=== PATIENT | female | born 1950 | race Hispanic/Latino ===

== ENCOUNTER 2018-12-09 11:39 | Inpatient (IN) | payer OTHER ==
[~2018-12-09] VITALS: Ht 152.4 cm; Wt 54.9 kg
[2018-12-09] MEDS: DEXTROSE 5 % AND 0.9 % NACL 1,000 ML IV SCH (12:00)
[2018-12-09] MEDS ORDERED: ONDANSETRON HCL 4 MG/2 ML VIAL IVP PRN (12:00)
[2018-12-09] MEDS ORDERED: ACETAMINOPHEN 325 MG TAB PO PRN (12:00)
[2018-12-09] MEDS ORDERED: SODIUM CHLORIDE 0.9% 1000ML 1,000 ML IV ONE (12:39)
[2018-12-09] MEDS ORDERED: LACTATED RINGERS 1000ML 1,000 ML IV ONE ×2 (12:39→15:53)
[2018-12-09 12:54] LABS: BASOPHILS % (AUTO) 0.7 % (0.0-5.0); EOSINOPHILS % (AUTO) 0.5 % (0.0-8.0); HEMATOCRIT 37.7 % (36-48); LYMPHOCYTES % (AUTO) 14.3 % (21.0-51.0); MEAN CORPUSCULAR HEMOGLOBIN 30.4 pg (27.0-33.0); MEAN CORPUSCULAR HGB CONC 35.8 g/dL (32.0-36.0); MEAN CORPUSCULAR VOLUME 84.8 fL (79-99); MONOCYTES % (AUTO) 6.6 % (3.0-13.0); NEUTROPHILS % (AUTO) 77.9 % (40.0-77.0); PLATELET COUNT (AUTO) 192 K/uL (130-400); RED BLOOD CELL COUNT(AUTO) 4.45 MIL/uL (4.00-5.50); RED CELL DISTRIBUTION WIDTH 14.3 % (11.0-15.5); WHITE BLOOD COUNT (AUTO) 8.3 K/uL (4.8-10.8)
[2018-12-09 13:04] LABS: CARBON DIOXIDE 28 mmol/L (21-32); CHLORIDE 103 mmol/L (101-111); CREATININE 0.6 mg/dL (0.5-1.5); GLOMERULAR FILTR. RATE CALC 106 mL/min (>60); GLUCOSE,RANDOM 96 mg/dL (70-105); POTASSIUM 3.3 mmol/L (3.5-5.1); SODIUM SERUM 143 mmol/L (136-145); UREA NITROGEN, BLOOD 11 mg/dL (7-18)
[2018-12-09 13:08] LABS: ALBUMIN 3.5 g/dL (3.5-5.0); ASPARTATE AMINOTRANSFERASE 10 U/L (10-37); PHOSPHORUS 3.6 mg/dL (2.5-4.9); TOTAL PROTEIN, SERUM 6.6 g/dL (6.0-8.3)
[2018-12-09 13:11] LABS: ALANINE AMINOTRANSFERASE < 6 U/L (12-78)
[2018-12-09 13:58] LABS: ERYTHROCYTE SEDIMENTATION RATE 17 MM/HR (0-30)
[2018-12-09] MEDS ORDERED: POTASSIUM CHLORIDE 20 MEQ ERTAB PO ONE (15:53)
[2018-12-09 17:04] LABS: APPEARANCE,URINE Clear (CLEAR); BILIRUBIN,URINE Moderate (NEGATIVE); COLOR,URINE Dark Yellow (YELLOW); GLUCOSE, URINE (UA) Negative (NEGATIVE); KETONES,URINE >=160 mg/dL (NEGATIVE); LEUKOCYTE ESTERASE ,URINE Small (NEGATIVE); NITRATE,URINE Negative (NEGATIVE); OCCULT BLOOD,URINE Negative (NEGATIVE); PH,URINE 6.5 (5.0-8.0); PROTEIN,URINE POS 1+ mg/dL (NEGATIVE)
[2018-12-09 17:13] LABS: RBC,URINE 0-1 /HPF (0-1)
[2018-12-09 17:14] LABS: BACTERIA,URINE Few /HPF (None Seen); SQUAMOUS EPITHELIAL CELL,UR Few /HPF (0-2)
[2018-12-09 18:17] VITALS: BP 160/78
--- NOTE | 2018-12-09 18:41 | NUR ---
HAS BLANKET AND UNDERGARMENTS Addendum: 12/09/18 at 1855 by KASIA COYLE RN Amended: Links added.
[2018-12-09 19:59] VITALS: BP 193/91
--- NOTE | 2018-12-09 20:30 | NUR ---
CALL TO DAUGHTER T/C PLACED TO DAUGHTER TO INFORM HER TO BRING HOME MEDICATIONS, STATES WILL BRING AT 6 AM, INFORMED NIGHT NURSE ISELA MORALES. ALSO, ASKED ABOUT LAST BOWEL MOVEMENT, STATES IS WAS LAST SUNDAY OR SUNDAY.
[2018-12-09] MEDS: FAMOTIDINE 20MG TAB 20 MG TAB PO SCH (20:41)
[2018-12-10] VITALS: BP 180/84
[2018-12-10 04:00] VITALS: BP 184/77
[2018-12-10 07:51] VITALS: BP 179/75
--- NOTE | 2018-12-10 08:10 | NUR ---
Dr. Kala winter. Pt sleeping. New orders for US abdomen/liver. Addendum: 12/10/18 at 0813 by JAUN YAO RN RN Error. Dr. Abilio winter.
[2018-12-10] MEDS ORDERED: LISI10TA7 PO (08:38)
[2018-12-10] MEDS ORDERED: PANT40TA25 PO (08:38)
[2018-12-10] MEDS ORDERED: CARAL PO (08:38)
[2018-12-10] MEDS: FAMOTIDINE 20MG TAB 20 MG TAB PO SCH ×2 (08:40→21:49)
[2018-12-10] MEDS: SODIUM CHLORIDE 0.9% 1000ML 1,000 ML IV SCH ×4 (08:42→18:30)
[2018-12-10 11:14] VITALS: BP 146/72
[2018-12-10] MEDS: DEXTROSE 5 % AND 0.9 % NACL 1,000 ML IV SCH (12:00)
[2018-12-10] MEDS ORDERED: POTASSIUM CHLORIDE 20 MEQ ERTAB PO PRN (16:00)
--- NOTE | 2018-12-10 16:00 | NUR ---
CM NOTE IA ATTEMPTED X 2 FIRST TIME EARLIER TODAY PT SLEEPING HEAVILY, NO FMAILY IN ROOM- EYES CLOSED, RESP REGUALR SECOND ATTEMPT, PT ON BEDPAN, WILL RETURN FOR IA TOMORROW. PT CURRENTLY IN OBS STATUS, BUT NOT EXPECTED TO DC TODAY . DISCUSSED PATIENT Donal [facility] , INVESTIGATION INTO UNDERLYING CAUSE FOR SYMPTOMS STILL ONGOING Addendum: 12/11/18 at 4098 by SYK HOLDER RN CM Amended: Links added.
[2018-12-10] MEDS ORDERED: DIATR MEGLU/DIATRIZOATE SODIUM 30 ML BOTTLE ONE (16:28)
[2018-12-10] MEDS: PANTOPRAZOLE SODIUM 40 MG TABLET.DR PO SCH (16:30)
[2018-12-10 16:53] VITALS: BP 181/72
[2018-12-10] MEDS: SUCRALFATE 1 GM/10 ML PO SCH (17:00)
[2018-12-10] MEDS ORDERED: AMLODIPINE BESYLATE 5 MG TAB PO SCH (19:45)
[2018-12-10 19:53] VITALS: BP 158/84
[2018-12-10] MEDS ORDERED: AMLODIPINE BESYLATE 5 MG TAB PO ONE (21:11)
[2018-12-10] MEDS: LISINOPRIL 10 MG TABLET PO SCH (21:49)
[2018-12-11] VITALS (20 sets, daily range): BP systolic 141–202; BP diastolic 61–96
[2018-12-11 05:48] LABS: BASOPHILS % (AUTO) 0.9 % (0.0-5.0); EOSINOPHILS % (AUTO) 0.6 % (0.0-8.0); HEMATOCRIT 36.1 % (36-48); LYMPHOCYTES % (AUTO) 15.3 % (21.0-51.0); MEAN CORPUSCULAR HEMOGLOBIN 30.2 pg (27.0-33.0); MEAN CORPUSCULAR HGB CONC 35.5 g/dL (32.0-36.0); MEAN CORPUSCULAR VOLUME 85.1 fL (79-99); NEUTROPHILS % (AUTO) 76.2 % (40.0-77.0); PLATELET COUNT (AUTO) 177 K/uL (130-400); RED BLOOD CELL COUNT(AUTO) 4.25 MIL/uL (4.00-5.50); WHITE BLOOD COUNT (AUTO) 7.4 K/uL (4.8-10.8)
[2018-12-11 06:15] LABS: CREATININE 0.5 mg/dL (0.5-1.5); POTASSIUM 3.2 mmol/L (3.5-5.1)
[2018-12-11] MEDS: PANTOPRAZOLE SODIUM 40 MG TABLET.DR PO SCH ×2 (07:00→15:58)
[2018-12-11] MEDS: SUCRALFATE 1 GM/10 ML PO SCH ×3 (07:00→15:58)
[2018-12-11] MEDS: FAMOTIDINE 20MG TAB 20 MG TAB PO SCH ×2 (08:52→21:00)
[2018-12-11] MEDS: AMLODIPINE BESYLATE 5 MG TAB PO SCH (08:54)
[2018-12-11] MEDS ORDERED: ENOXAPARIN SODIUM 40 MG/0.4 ML SYRINGE SQ SCH (09:00)
[2018-12-11] MEDS: SODIUM CHLORIDE 0.9% 1000ML 1,000 ML IV SCH ×2 (10:30→15:59)
[2018-12-11] MEDS: DEXTROSE 5 % AND 0.9 % NACL 1,000 ML IV SCH ×2 (12:00→14:55)
[2018-12-11] MEDS: POTASSIUM CHLORIDE 10% ELIXIR 20 MEQ/15 ML UDCUP PO PRN ×2 (13:48→14:55)
[2018-12-11] MEDS: HYDRALAZINE HCL 20 MG/ML VIAL IV PRN ×2 (13:49→18:18)
[2018-12-11] MEDS ORDERED: MANNITOL 25% 50ML VIAL IV STA (14:07)
--- NOTE | 2018-12-11 14:20 | NUR ---
XFR Received from 4th floor room 412. Easy to arouse, oriented to person and place. Daughter at bedside. New 20 gauge IV catheter started to left wrist, meds given as ordered. Daughter at bedside, plan of care discussed, verbalized understanding. Sinus mechanism in 90s. Side rails up. Will continue to monitor.
[2018-12-11] MEDS ORDERED: DEXAMETHASONE SOD PHOSPHATE 4 MG/ML 1ML VIAL IVP STA (14:25)
[2018-12-11] MEDS ORDERED: LEVETIRACETAM 1,500 MG in SODIUM CHLORIDE 0.9% 100 ML IV SCH (14:37)
[2018-12-11] MEDS: POTASSIUM CHLORIDE 20MEQ/100ML 100 ML IV PRN (14:56)
[2018-12-11] MEDS: LIDOCAINE HCL-MPF 1% 2ML VIAL IV PRN (14:56)
[2018-12-11] MEDS ORDERED: COMPOUND IV MISC 1 EACH IVSOLN MISC PRN (15:00)
--- NOTE | 2018-12-11 16:30 | NUR ---
CONSULT Dr. Pierre made aware of new consult.
--- NOTE | 2018-12-11 16:51 | NUR ---
BENCHMARK Dr. Silver made aware of Dr. Pierre's recommendations.
--- NOTE | 2018-12-11 17:40 | NUR ---
DC PLAN VISITED WITH PATIENT. PATIENT LIVES WITH DAUGHTER. INDEPENDENT ABLE TO PERFORM ADL'S. PATIENT HAS NO SERVICES OR DME'S. FEELS SAFE TO RETURN HOME. Addendum: 12/11/18 at 1741 by FIDENCIO PEREZ RN CM Amended: Links added.
--- NOTE | 2018-12-11 17:45 | NUR ---
Paged oncology full fashioned garment knitter twice to notify about transfer to ICU and results of CT scans, awaiting reply.
--- NOTE | 2018-12-11 19:15 | NUR ---
ASSESMENT: Report received. Patient difficult to arouse, oriented to person and place by responding "yes " to questions. kennedi 3 mm equal, lungs clear on room air, bowel sounds active, pedal pulses weak . Daughter at bedside. Daughter at bedside, plan of care discussed, verbalized understanding. Sinus mechanism in 98. Side rails up. See full assessment.
[2018-12-11] MEDS: DEXAMETHASONE SOD PHOSPHATE 4 MG/ML 1ML VIAL IVP SCH (20:19)
[2018-12-11] MEDS: LEVETIRACETAM 500 MG in SODIUM CHLORIDE 0.9% 100 ML IV SCH (20:19)
[2018-12-11] MEDS: LISINOPRIL 10 MG TABLET PO SCH (21:00)
--- NOTE | 2018-12-11 22:00 | NUR ---
Gwendolyn KIM,MANAGER [employer] notified patient very difficult to arouse, Pupils 3mm, equal, earlier she was oriented to person and place by responding "yes " to questions. kennedi 3 mm equal, unable to take po meds at this time, moves extremities but not to command, grimaces to loud verbal and tactile stimuli. Patient did received po meds approx 1400, mannitol and high dose of Keppra. Loose stool with low potassium covered. New order for CT brain without contrast, increase D5W to 55 ml/hr.
--- NOTE | 2018-12-11 22:50 | NUR ---
CT BRAIN WITHOUT CONTRAST COMPLETED.
[2018-12-12] VITALS (27 sets, daily range): BP systolic 132–181; BP diastolic 63–90
[2018-12-12] MEDS: DEXAMETHASONE SOD PHOSPHATE 4 MG/ML 1ML VIAL IVP SCH ×5 (00:10→23:04)
[2018-12-12] MEDS: HYDRALAZINE HCL 20 MG/ML VIAL IV PRN ×3 (00:10→15:49)
[2018-12-12 00:33] LABS: POTASSIUM 3.3 mmol/L (3.5-5.1)
--- NOTE | 2018-12-12 00:39 | NUR ---
CT HEAD RESULTS REPORTED TO Mike KIM NP-NEW ORDERS RECEIVED
[2018-12-12] MEDS ORDERED: MANNITOL 25% 50ML VIAL ONE (00:53)
[2018-12-12] MEDS: MANNITOL 25% 50ML VIAL IV SCH ×2 (01:24→23:29)
[2018-12-12] MEDS: POTASSIUM CHLORIDE 20MEQ/100ML 100 ML IV PRN ×2 (01:29→03:23)
[2018-12-12] MEDS: LIDOCAINE HCL-MPF 1% 2ML VIAL IV PRN ×2 (01:29→03:24)
[2018-12-12] MEDS: INSULIN HUMULIN R 100 UNIT/ML 3ML SQ SCH ×6 (02:39→22:00)
[2018-12-12 04:38] LABS: CREATININE 0.6 mg/dL (0.5-1.5); MAGNESIUM 1.6 mg/dL (1.80-2.40); PHOSPHORUS 2.6 mg/dL (2.5-4.9); POTASSIUM 3.9 mmol/L (3.5-5.1)
[2018-12-12] MEDS: SUCRALFATE 1 GM/10 ML PO SCH ×3 (06:32→17:18)
[2018-12-12] MEDS: PANTOPRAZOLE SODIUM 40 MG TABLET.DR PO SCH (06:32)
[2018-12-12] MEDS ORDERED: MAGNESIUM 2GM PREMIX 50ML 50 ML IV PRN ×2 (07:45→13:45)
[2018-12-12] MEDS: LEVETIRACETAM 500 MG in SODIUM CHLORIDE 0.9% 100 ML IV SCH (08:21)
[2018-12-12] MEDS: AMLODIPINE BESYLATE 5 MG TAB PO SCH (09:21)
[2018-12-12] MEDS: FAMOTIDINE 20MG TAB 20 MG TAB PO SCH ×2 (09:21→20:10)
[2018-12-12] MEDS: DEXTROSE 5 % AND 0.9 % NACL 1,000 ML IV SCH (10:26)
[2018-12-12] MEDS ORDERED: GADODIAMIDE 10 MMOL/20 ML VIAL IV ONE (10:55)
--- NOTE | 2018-12-12 14:10 | NUR ---
CALLED OFFICE OF DR PÉREZ TO NOTIFY ABOUT NEW CONSULT, SPOKE TO VICK
--- NOTE | 2018-12-12 15:00 | NUR ---
SPOKE TO DR PÉREZ VIA PHONE, STATED HE'LL SEE PATIENT TOMORROW
--- NOTE | 2018-12-12 16:14 | NUR ---
DCP: [facility] at [facility] Hannah met with pt's daughter Dimple Townsend. Daughter wanting to discuss options for hospice with placement. Sw educated on hospice at home, [place], and [facility]. Daughter wanting to tour [facility] and [facility] and use [facility]. Daughter gave consent for referrals. Hannah spoke to Nina at [facility] and gave name for waiting list. Daughter in tour at 9 in am. Hannah spoke to Uma at [facility]. THey will call daughter in am with tour time. Hannah spoke to Gio at [facility] and he will meet with family for consents. Pt info faxed to Gio Waiting for acceptance
[2018-12-12] MEDS ORDERED: PANTOPRAZOLE 40 MG/VIAL IV SCH (16:30)
[2018-12-12 18:40] LABS: MAGNESIUM 2.1 mg/dL (1.80-2.40); POTASSIUM 3.4 mmol/L (3.5-5.1)
[2018-12-12] MEDS: LEVETIRACETAM 750 MG in SODIUM CHLORIDE 0.9% 100 ML IV SCH (20:10)
[2018-12-12] MEDS: POTASSIUM CHLORIDE 10% ELIXIR 20 MEQ/15 ML UDCUP PO PRN ×2 (20:11→23:04)
[2018-12-12] MEDS: LISINOPRIL 10 MG TABLET PO SCH (20:11)
[2018-12-13] VITALS (10 sets, daily range): BP systolic 139–168; BP diastolic 61–79
[2018-12-13] MEDS: HYDRALAZINE HCL 20 MG/ML VIAL IV PRN ×2 (00:22→04:01)
[2018-12-13 00:32] LABS: POTASSIUM 4.6 mmol/L (3.5-5.1)
[2018-12-13] MEDS: INSULIN HUMULIN R 100 UNIT/ML 3ML SQ SCH ×3 (02:00→10:00)
[2018-12-13] MEDS: DEXAMETHASONE SOD PHOSPHATE 4 MG/ML 1ML VIAL IVP SCH (06:02)
[2018-12-13 06:16] LABS: HEMATOCRIT 38.7 % (36-48); LYMPHOCYTES % (AUTO) 4.7 % (21.0-51.0); MEAN CORPUSCULAR HEMOGLOBIN 29.8 pg (27.0-33.0); MEAN CORPUSCULAR HGB CONC 34.4 g/dL (32.0-36.0); MEAN CORPUSCULAR VOLUME 86.7 fL (79-99); MONOCYTES % (AUTO) 7.1 % (3.0-13.0); NEUTROPHILS % (AUTO) 88.2 % (40.0-77.0); PLATELET COUNT (AUTO) 194 K/uL (130-400); RED BLOOD CELL COUNT(AUTO) 4.46 MIL/uL (4.00-5.50); RED CELL DISTRIBUTION WIDTH 15.7 % (11.0-15.5); WHITE BLOOD COUNT (AUTO) 11.4 K/uL (4.8-10.8)
[2018-12-13 06:36] LABS: CREATININE 0.6 mg/dL (0.5-1.5); MAGNESIUM 1.9 mg/dL (1.80-2.40); PHOSPHORUS 2.2 mg/dL (2.5-4.9); POTASSIUM 3.9 mmol/L (3.5-5.1)
--- NOTE | 2018-12-13 09:04 | NUR ---
[facility] Hannah recd call from Marcela at [facility]. Daughter is there at this time for tour. [facility] has a bed available. Pending acceptance. CM notified. Hannah spoke to Gio. Pt is accepted by [facility] pending placement.
[2018-12-13] MEDS: LEVETIRACETAM 750 MG in SODIUM CHLORIDE 0.9% 100 ML IV SCH (09:08)
[2018-12-13] MEDS: FAMOTIDINE 20MG TAB 20 MG TAB PO SCH (09:13)
[2018-12-13] MEDS: SUCRALFATE 1 GM/10 ML PO SCH (09:13)
[2018-12-13] MEDS: AMLODIPINE BESYLATE 5 MG TAB PO SCH (09:13)
--- NOTE | 2018-12-13 09:54 | NUR ---
DCP: [facility] Hannah recd call from Marcela at [facility], pt has been accepted and must be there by 3 today. Hannah spoke to Gio at [facility], DME should be there within 2 hrs. Gio to notify when DME there. CM is aware of above and working on ambulance transport auth
--- NOTE | 2018-12-13 10:16 | NUR ---
GAVE REPORT TO ANTONINO HILARIO.
--- NOTE | 2018-12-13 10:45 | NUR ---
GAVE EMS REPORT FOR PATIENT TRANSFER TO [facility].
--- NOTE | 2018-12-13 10:53 | NUR ---
DC PLAN PATIENT ACCEPTED TO [facility] AND TO ANTONINO HILARIO. EMS SET UP FOR PATIENT. NURSE AWARE THAT PATIENT NEEDS TO BE DISCHARGED BY 2PM. Addendum: 12/13/18 at 1054 by FIDENCIO PEREZ RN CM Amended: Links added.
--- NOTE | 2018-12-13 11:23 | NUR ---
INFORMED DR. WOODRUFF ABOUT PATIENT LEAVING FOR [facility] AND [facility].
--- NOTE | 2018-12-13 11:36 | NUR ---
OOHDNR/DME at [facility] met with pt's daughter Dimple and completed the OOHDNR. OOHDNR was sent to Gio who will get Dr Patel, director of health education to sign. Gio states DME at facility.
--- NOTE | 2018-12-13 12:08 | NUR ---
PATIENT TAKEN BY EMS TO [facility] WITH [facility].
== END 2018-12-13 12:10 | disposition hospice, home (50) | DRG 640 ==
LOC: EDH 11:39 → EDHIP 11:55 → OBSVTOIN 11:55 → EEVIPCON 11:55 → 4BH 18:00 → 2BH 12-11 14:22
PROVIDERS: ADMIT Internal Medicine Pulmonary Disease; ATTEND Internal Medicine Pulmonary Disease
DX: E86.0 Dehydration (principal); G93.6 Cerebral edema; I31.3 Pericardial effusion (noninflammatory); R17 Unspecified jaundice; E87.6 Hypokalemia; E78.5 Hyperlipidemia, unspecified; I10 Essential (primary) hypertension; Z66 Do not resuscitate; C50.919 Malignant neoplasm of unspecified site of unspecified female breast; Z85.820 Personal history of malignant melanoma of skin
CPT/HCPCS: 36415; 70450; 70553; 71045; 72100; 74018; 74176; 76700; 80048; 80053; 81001; 82948; 83735; 83930; 84100; 84132; 84295; 84443; 85025; 85651; 97039; A9579; C9113; G0378; J0360; J1100; J1650; J1815; J1953; J2150; J2405; J3475; J3480; J3490; J7030; J7042; J7120; Q9963